=== PATIENT | male | born 1990 | race Native Hawaiian/Other Pacific Islander ===

== ENCOUNTER 2019-09-25 17:38 | Emergency (ER) | payer OTHER ==
[~2019-09-25] VITALS: Ht 198.1 cm; Wt 108.9 kg
[2019-09-25 20:54] VITALS: BP 119/52; TEMP 0
== END 2019-09-25 20:55 | disposition home or self-care (01) ==
LOC: ED 17:38
DX: S62.666A Nondisplaced fracture of distal phalanx of right little finger, initial encounter for closed fracture (principal); S60.051A Contusion of right little finger without damage to nail, initial encounter; W27.8XXA Contact with other nonpowered hand tool, initial encounter
CPT/HCPCS: 90471; 90715; 96372; 99283; J0696; J1885

== ENCOUNTER 2019-11-09 14:51 | Emergency (ER) | payer OTHER ==
[~2019-11-09] VITALS: Ht 198.1 cm; Wt 108.9 kg
[2019-11-09 17:30] VITALS: BP 113/65; TEMP 100
== END 2019-11-09 17:30 | disposition home or self-care (01) ==
LOC: ED 14:51
DX: J02.0 Streptococcal pharyngitis (principal)
CPT/HCPCS: 87502; 87651; 99283

== ENCOUNTER 2021-04-19 22:18 | Emergency (ER) | payer OTHER ==
[~2021-04-19] VITALS: Ht 198.1 cm; Wt 93.0 kg
[2021-04-19 23:52] LABS: PLATELET COUNT 188 K/uL (142-355)
[2021-04-20 00:16] LABS: POTASSIUM 3.3 mmol/L (3.6-5.2)
[2021-04-20 01:12] VITALS: BP 120/60; TEMP 99.1
== END 2021-04-20 01:12 | disposition home or self-care (01) ==
LOC: ED 22:18
PROVIDERS: Hospitalist
DX: R50.9 Fever, unspecified (principal); J06.9 Acute upper respiratory infection, unspecified; U07.1 COVID-19
CPT/HCPCS: 36415; 80048; 85027; 87635; 87651; 99283; U0003

== ENCOUNTER 2021-04-25 11:46 | Outpatient (CLI) | payer OTHER | END 2021-04-25 21:13 | disposition home or self-care (01) | LOC: RAD 11:46 | PROVIDERS: ATTEND Nurse Practitioner Family | DX: U07.1 COVID-19 (principal); R06.02 Shortness of breath ==

== ENCOUNTER 2022-07-19 16:04 | Emergency (ER) | payer OTHER ==
[~2022-07-19] VITALS: Ht 198.1 cm; Wt 93.0 kg
[2022-07-19 16:05] VITALS: TEMP 98.8
[2022-07-19 16:56] LABS: PLATELET COUNT 326 K/uL (142-355)
[2022-07-19 17:00] LABS: POTASSIUM 3.7 mmol/L (3.6-5.2)
[2022-07-19 17:15] LABS: PARTIAL THROMBOPLASTIN TIME 24.5 SECONDS (24.5-33.6)
[2022-07-19 18:20] VITALS: BP 128/82
== END 2022-07-19 18:20 | disposition home or self-care (01) ==
LOC: ED 16:04
PROVIDERS: Emergency Medicine
DX: R07.89 Other chest pain (principal); F15.90 Other stimulant use, unspecified, uncomplicated; R00.2 Palpitations
CPT/HCPCS: 80053; 84484; 85027; 85610; 85730; 93005; 96374; 96375; 99284; J1885; J2405; J3490